=== PATIENT | female | born 1980 | race Caucasian/White ===

== ENCOUNTER 2019-04-28 12:21 | Outpatient (CLI) | payer OTHER ==
--- NOTE | 2019-04-28 13:43 | CT ---
CT abdomen and pelvis with and without IV contrast HISTORY: Hematuria. COMPARISON: 10/11/2014. FINDINGS: Each renal collecting system, ureter, and urinary bladder are decompressed. Within the righ t renal pelvis, there are 2 small calcifications measuring 0.5 cm and 0.3 cm greatest diameters. No stones are evident on the left. No other filling defects visible within the urinary system on the del ayed images. Tiny cyst associated with the cortex of each kidney. Liver is diffusely hypodense. Nonspecific, react rodney appearing lymph nodes are apparent throughout the mesentery and retroperitoneum. The largest is at the presacral level, measuring 0.9 cm greatest diameter. No evidence of bowel obstruction. IMPRESSION: Nonobstructing right renal calculi. Hepatic steatosis.
[2019-04-28] MEDS ORDERED: ISOVUE-370 76%-LOCM 1 ML ONE (13:44)
== END 2019-04-28 12:22 | disposition home or self-care (01) ==
LOC: BICCT 12:21
PROVIDERS: ATTEND Urology
DX: N20.0 Calculus of kidney (principal); R31.0 Gross hematuria; K76.0 Fatty (change of) liver, not elsewhere classified
CPT/HCPCS: 74178; Q9966

== ENCOUNTER 2019-05-28 05:53 | Day surgery (SDC) | payer BC ==
[2019-05-16 08:48] VITALS: BMI 36.4
[2019-05-28] MEDS ORDERED: Levofloxacin 500 mg/D5W 100 ml Premix Bag ONE (06:58)
[2019-05-28] MEDS ORDERED: Midazolam HCl 2 mg/ml Syrup 5 ml UD Cup ONE (07:13)
[2019-05-28] MEDS ORDERED: Iothalamate Meglumine 60% 50 ML VIAL FS ONE (07:18)
[2019-05-28] MEDS ORDERED: Fentanyl 100 MCG/2 ML VIAL ONE (07:28)
[2019-05-28] MEDS ORDERED: Fluconazole In NaCl,Iso-Osm 200 MG in Premix Bag 1 BAG IVPB SCH (07:30)
[2019-05-28] MEDS ORDERED: SUGAMMADEX SODIUM 500 MG/5 ML VIAL ONE (08:12)
--- NOTE | 2019-05-28 08:14 | RAD ---
SUPINE ABDOMEN: HISTORY: Preop. COMPARISON: Abdominal film from 01/09/2013. CT abdomen from 04/28/2019. FINDINGS: Calcification overlying the right renal outline is seen, corresponding to the calcifications seen in the collecting structures of the right kidney on the 04/28/2019 CT. No other calcification identifie d. The bowel gas pattern is unremarkable. POS: [facility]
--- NOTE | 2019-05-28 08:29 | RAD ---
EXAM: XR IVP Retrograde PROVIDED CLINICAL HISTORY: Gross hematuria COMPARISON: Abdominal radiograph on 05/28/2019. 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 Subsequent imaging demonstrates right retrograde urogram followed by placement of a guidewire and balloon with the balloon overlying the mid right ureter. The final im age demonstrates a double pigtail ureteral stent in place. Correlation with intraoperative findings is recommended.
[2019-05-28] MEDS ORDERED: Sodium Chloride For Inhalation 0.9% 3 ML NEB ONE (08:30)
[2019-05-28] MEDS ORDERED: Oxybutynin 5 MG TAB ONE (08:57)
[2019-05-28] MEDS ORDERED: Phenazopyridine HCl 97.5 MG TABLET ONE (08:57)
--- NOTE | 2019-05-28 09:06 | OP ---
DATE OF PROCEDURE: 05/28/2019 PREOPERATIVE DIAGNOSES: A 38-year-old female with history of morbid obesity, with right renal lithiasis measuring 10 mm x 5 mm x 6 mm, stone to skin distance, 6 to 17 cm due to morbid obesity. Previous stone analysis consistent with calcium phosphate 85%, monohydrate 50% moiety. POSTOPERATIVE DIAGNOSES: A 38-year-old female with history of morbid obesity, with right renal lithiasis measuring 10 mm x 5 mm x 6 mm, stone to skin distance, 6 to 17 cm due to morbid obesity. Previous stone analysis consistent with calcium phosphate 85%, monohydrate 50% moiety. PROCEDURES PERFORMED: Cystoscopy, right retrograde pyelogram, 6 x 22 double-J ureteral stent placement, balloon dilatation of the ureter, diagnostic ureteroscopy. ANESTHESIA: General. COMPLICATIONS: None apparent. DISPOSITION: To recovery room in stable condition. INDICATIONS FOR PROCEDURE AND HISTORY: Ms. Can is a pleasant 38-year-old female with history of recurrent kidney stone, prior stone moiety demonstrating dense calcium phosphate, calcium monohydrate moiety. She presented with a followup CT demonstrating right renal calculi measuring 10 mm in largest dimension with stone to skin distance about 16-17 cm. We discussed in detail regarding treatment options including observation, ESWL, ureteroscopy, laser lithotripsy. Given her stone nidus, density, and her morbid obesity, she desired more efficacious treatment, i.e., ureteroscopy, laser lithotripsy. She declined ESWL. Risks and complications including, but not limited to bleeding, pain, infection, ureteral, bladder, kidney injury, stricture disease, possible secondary procedure, if unable to access the upper collecting system was reviewed with her in detail and she desired to proceed. DESCRIPTION OF PROCEDURE: After an informed consent was signed, the patient was taken to the operating room, placed in a dorsal lithotomy position with the genital area prepped and draped in the usual surgical sterile fashion. A 21-Ku[place]i cystoscope was utilized for cystoscopy, which demonstrated normal bladder mucosa. The UOs were identified in normal anatomical location. She does have a mild cystocele grade 2. We intubated the right UO performing a retrograde pyelogram, which demonstrated no evidence of filling defect or hydronephrosis. The stone was seen likely in the right lower pole, it appeared to have moved to the lower pole anterior collecting system. A 0.35 Sensor wire was placed into the right upper pole without difficulty. Using a [employer] 4-cm 12-[place]i balloon dilator, we dilated the intramural ureter and the distal ureter in 2 segments under direct fluoroscopy evaluation. This was performed uneventfully. Subsequently, we passed a 10-[place]i dual-lumen access sheath to the level of the proximal ureter with ease and a second safety wire 0.35 Super Stiff was placed into the right upper pole. We gently attempted to pass an 11/13-[place]i 20 cm navigator; however, would not pass beyond the level of the intramural distal ureter to the level of the balloon dilatation. We did not forcibly engage. We removed the navigator and attempted to pass the flexible ureteroscope under guidewire assist. I was able to make my way into the level of the intramural ureter. There was a little hang up just proximal to this; however, under direct visualization, the scope was maneuvered with wire in situ and passed this beyond. The scope was gently passed to the level of the proximal ureter; however, at the level of the UPJ, there was a hang up and would not pass. Therefore, I did not forcibly engage. A decision was made to leave the stent in situ to allow passive dilatation so that we may access the renal pelvis collecting system at a later date as I did not want forcibly engage the ureteroscope. At this time, a 6 x 22 double-J ureteral stent was passed without difficulty. Proximal coil was seen in the renal pelvis with adequate redundancy in the bladder. She tolerated the procedure well. She was discharged with VESIcare 5 mg #30, one p.o. daily; Colace 100 mg one p.o. b.i.d.; tramadol 50 mg 1 to 2 p.o. q.4-6 hours p.r.n.; ciprofloxacin 500 mg for course of 5 days; Azo p.r.n. She will return to clinic next preop for a staged ureteroscopy and laser lithotripsy. I will tentatively attempt to book her June 11, so that she may have a stent in situ for palate dilatation to access the upper collecting system. Job ID: [id number] [facility]
== END 2019-05-28 10:54 | disposition home or self-care (01) ==
LOC: SDC 05:53
PROVIDERS: ATTEND Urology
PROC: 0TJ98ZZ Inspection of Ureter, Via Natural or Artificial Opening Endoscopic (ICD-10-PCS; principal; 2019-05-28)
PROC: 0T768DZ Dilation of Right Ureter with Intraluminal Device, Via Natural or Artificial Opening Endoscopic (ICD-10-PCS; principal; 2019-05-28)
DX: N20.0 Calculus of kidney (principal); N81.10 Cystocele, unspecified; E66.01 Morbid (severe) obesity due to excess calories; J45.909 Unspecified asthma, uncomplicated; I10 Essential (primary) hypertension; E78.00 Pure hypercholesterolemia, unspecified; G43.909 Migraine, unspecified, not intractable, without status migrainosus; E78.5 Hyperlipidemia, unspecified; E11.65 Type 2 diabetes mellitus with hyperglycemia; K21.9 Gastro-esophageal reflux disease without esophagitis; N39.3 Stress incontinence (female) (male); Z68.36 Body mass index [BMI] 36.0-36.9, adult; Z87.891 Personal history of nicotine dependence; Z87.442 Personal history of urinary calculi; Z88.1 Allergy status to other antibiotic agents; Z88.8 Allergy status to other drugs, medicaments and biological substances; Z79.84 Long term (current) use of oral hypoglycemic drugs; Z79.899 Other long term (current) drug therapy
CPT/HCPCS: 74018; 74420; C1758; C1769; J1450; J1956; J3010; J7620

== ENCOUNTER 2019-06-11 06:50 | Day surgery (SDC) | payer BC ==
[2019-06-05 10:56] VITALS: BMI 35.5
[2019-06-11] MEDS ORDERED: Levofloxacin 500 mg/D5W 100 ml Premix Bag ONE (07:49)
[2019-06-11] MEDS ORDERED: cefTRIAXone\\ROCEPHIN 1 GM VIAL ONE (07:49)
[2019-06-11] MEDS ORDERED: Sodium Chloride 0.9% 100 ML ONE (07:49)
[2019-06-11] MEDS ORDERED: Iothalamate Meglumine 60% 50 ML VIAL FS ONE (07:57)
--- NOTE | 2019-06-11 08:22 | RAD ---
FRONTAL VIEW ABDOMEN KUB: COMPARISON: 05/28/2019. INDICATION: History of urolithiasis, stent placement. FINDINGS: There is a double-J right ureteral stent with proximal coil overlying the expected region of the righ t renal pelvis and distal coiled overlying the urinary bladder. There is an adjacent calcific densit y just inferior to the proximal ureteral coil overlying the right renal shadow, grossly stable. IMPRESSION: Interval deployment of right ureteral stent. Calcification overlying the right renal shadow persists . POS: [facility]
[2019-06-11] MEDS ORDERED: Fentanyl 100 MCG/2 ML VIAL ONE ×2 (09:16→11:54)
[2019-06-11] MEDS ORDERED: Midazolam HCl 2 mg/2 ml Vial ONE (09:16)
[2019-06-11] MEDS ORDERED: Morphine 2 MG/ML SYRINGE ONE (13:08)
--- NOTE | 2019-06-11 13:13 | RAD ---
RETROGRADE PYELOGRAM: HISTORY: Stent placement. FINDINGS: Preliminary film shows lower pole right renal calculus. Subsequent 4 images show placement of a righ t ureteral stent which is in good position. IMPRESSION: Placement of right ureteral stent. POS: [facility]
[2019-06-11] MEDS ORDERED: HYDROcodone/Acetaminophen 5/325 mg Tablet ONE (14:50)
--- NOTE | 2019-06-11 16:34 | OP ---
DATE OF PROCEDURE: 06/11/2019 PREOPERATIVE DIAGNOSIS: A 38-year-old female with history of recurrent kidney stone: Right renal lithiasis x2, total dimensions measuring about 10 mm. POSTOPERATIVE DIAGNOSIS: A 38-year-old female with history of recurrent kidney stone: Right renal lithiasis x2, total dimensions measuring about 10 mm. PROCEDURES PERFORMED: 1. Cystoscopy. 2. Right retrograde pyelogram. 3. 6 x 22 double-J ureteral stent exchange. 4. Ureteroscopy. 5. Pyeloscopy. 6. Laser lithotripsy of renal calculi. 7. Basket extraction of stone fragments.. ANESTHESIA: General. COMPLICATIONS: None apparent. DISPOSITION: To recovery room in stable condition. INDICATIONS FOR PROCEDURE AND HISTORY: Ms. Can is a 38-year-old female with morbid obesity and diabetes, who has recurrent kidney stone. Staging CT demonstrated a large renal stone burden as above and she desired to proceed with elective treatment. She underwent cysto and stent placement; however, I was unable to access the upper collecting system despite ureteral dilatation of the distal ureter. Therefore, stent was left in situ. She presents today for ureteroscopy and laser lithotripsy. Risks and complications of procedure were reviewed with her in detail including, but not limited to, bleeding, pain, infection, injury to adjacent organs, urosepsis, ureteral, renal, bladder, kidney injury, possible secondary procedure and she desired to proceed. DESCRIPTION OF PROCEDURE: After an informed consent was signed, the patient was taken to the operating room and placed in a dorsal lithotomy position with the genital area prepped and draped in the usual surgical sterile fashion. Bilateral KARTHIK hose and SCDs were provided. A 21-Montenegrin cystoscope was utilized for cystoscopy, which demonstrated normal bladder mucosa. The previously placed right ureteral stent was removed to the level of the meatus and a 0.035 Sensor wire was passed to the level of the right renal collecting system. The stent was completely removed, and using a dual-lumen access sheath, we passed this to the level of the proximal ureter. Retrograde pyelogram opacified the collecting system, demonstrating an acute infundibular angle of the lower pole stone. Total dimension measures approximately 1 cm on KUB. At this time, a 0.035 Super Stiff wire was passed into the right upper pole via the dual-lumen. Subsequently, the dual- lumen was removed and an 11/13-Montenegrin x 28 cm navigator was passed through the Super Stiff wire. We passed a flexible ureteroscope to the level of the proximal ureter. This was passed to the level of the renal pelvis under guidance of the wire. The wire was then subsequently removed and we surveyed the collecting system, demonstrating a right renal pelvic stone and a lower pole stone. There were 2 stone moieties, and 1 was in the renal pelvis and we moved this to the upper pole. We laser lithotripsied using 200 micron ball-tip fiber as a dust setting, and we subsequently moved the right lower pole stone into the upper pole and laser lithotripsied the stone as well. Both stones had limbs consistent with Arnel stone. Laser lithotripsy of the stone was performed and they were very dense and hard in nature. After successful fragmentation, we retrieved those that were amendable to be basket extracted. What remains are punctate stone debris that is not of significant concern and she will most likely pass them. We surveyed the ureter, which demonstrated no evidence of ureteral mucosa trauma or persistent stone nidus of concern. The navigator was then successfully removed and we placed a 6 x 22 double-J ureteral stent uneventfully. She tolerated the procedure well and transported to the recovery room in stable condition. She is discharged with azo p.r.n.; VESIcare 5 mg, #20; ciprofloxacin for 10 days; tramadol #30, 50 mg; Colace p.r.n., #30. She is to obtain a KUB 1 day prior to her appointment with [facility] on , 06/19. KUB to be obtained on at 9 a.m. If no obvious stone debris of concern, we will remove stent under local on . Job ID: [id number] [facility]
[2019-06-11] MEDS ORDERED: Rocuronium Bromide 10 MG/ML (10ML VIAL) ONE (16:44)
[2019-06-11] MEDS ORDERED: Glycopyrrolate 0.2 MG/ML 5 ML SYRINGE ONE (16:44)
[2019-06-11] MEDS ORDERED: PROPOFOL 200 MG/20 ML VIAL ONE (16:44)
[2019-06-11] MEDS ORDERED: Lidocaine 1% PF 5 ML VIAL ONE (16:44)
== END 2019-06-11 15:12 | disposition home or self-care (01) ==
LOC: SDC 06:50
PROVIDERS: ATTEND Urology
PROC: 0TF38ZZ Fragmentation in Right Kidney Pelvis, Via Natural or Artificial Opening Endoscopic (ICD-10-PCS; principal; 2019-06-11)
PROC: 0T768DZ Dilation of Right Ureter with Intraluminal Device, Via Natural or Artificial Opening Endoscopic (ICD-10-PCS; principal; 2019-06-11)
DX: N20.0 Calculus of kidney (principal); G43.909 Migraine, unspecified, not intractable, without status migrainosus; J45.909 Unspecified asthma, uncomplicated; G93.2 Benign intracranial hypertension; E66.01 Morbid (severe) obesity due to excess calories; Z68.35 Body mass index [BMI] 35.0-35.9, adult; Z87.891 Personal history of nicotine dependence; Z79.84 Long term (current) use of oral hypoglycemic drugs; Z79.899 Other long term (current) drug therapy; Z88.1 Allergy status to other antibiotic agents; Z88.8 Allergy status to other drugs, medicaments and biological substances
CPT/HCPCS: 74018; 74420; 82365; 88300; J0696; J1956; J2001; J2250; J2270; J2704; J3010; J3490

== ENCOUNTER 2019-06-18 08:38 | Outpatient (CLI) | payer BC ==
--- NOTE | 2019-06-18 09:05 | RAD ---
EXAM: Single view of the abdomen HISTORY: Calculus of the kidney COMPARISON: 06/11/2019 FINDINGS: Single view of the abdomen shows a nonspecific, nonobstructive bowel gas pattern. A right-s ided ureteral stent appears in good position. No suspicious calcifications are seen. The bones are unremarkable. IMPRESSION: Nonvisualization of the previously seen right renal calcifications
== END 2019-06-18 08:39 | disposition home or self-care (01) ==
LOC: BICRAD 08:38
PROVIDERS: ATTEND Urology
DX: N20.0 Calculus of kidney (principal)
CPT/HCPCS: 74018

== ENCOUNTER 2019-06-19 17:15 | Emergency (ER) | payer BC ==
[2019-06-19] MEDS ORDERED: cefTRIAXone\\ROCEPHIN 2 GM VIAL ONE (18:10)
[2019-06-19 18:21] LABS: Bilirubin Negative (Negative); Urobilinogen 0.2 mg/dL (Less than 2)
[2019-06-19 18:26] LABS: Clarity Hazy (Clear)
[2019-06-19 18:27] LABS: Blood, Urine Moderate (Negative); Glucose, Urine (Dipstick) >=1000 mg/dL (Negative); Leukocyte Unable to Interpret (Negative); Nitrite Unable to Interpret (Negative)
[2019-06-19 18:29] LABS: Protein, Urine (Dipstick) Trace mg/dL (Neg-Trace)
[2019-06-19 18:38] LABS: Squamous Epithelial 0-3 HPF (0-3); WBC/HPF 21-50 HPF (0-3); Yeast-Budding 2+ HPF (None Seen)
[2019-06-19 18:40] LABS: #Eosinphils 0.1 thou/uL (0.0-0.7); #Lymphocytes 2.5 thou/uL (1.20-3.40); #Neutrophils 5.4 thou/uL (1.40-6.50); %Basophils 0.4 % (0.0-1.0); %Eosinophils 1.4 % (0.0-10.0); %Lymphocytes 27.5 % (21.0-51.0); %Monocytes 10.9 % (0.0-10.0); %Neutrophils 59.7 % (42.0-75.0); Hemoglobin 13.7 g/dL (12.0-16.0); Mean Corpuscular HGB CONC 33.7 g/dL (32.0-36.0); Mean Corpuscular Hemoglobin 30.6 pg (27.0-31.0); Mean Corpuscular Volume 90.7 fL (78.0-98.0); Platelet Count 256 thou/uL (130-400); RBC Distribution Width 11.2 % (11.5-14.5); Red Blood Cell (RBC) Count 4.49 mill/uL (4.20-5.40)
[2019-06-19 18:42] LABS: Bacteria/HPF None Seen HPF (None Seen)
[2019-06-19 19:05] LABS: ALT (SGPT) 47 U/L (8-55); AST (SGOT) 28 U/L (5-34); Alkaline Phosphatase 111 U/L (40-150); Anion Gap 16 mmol/L (10-20); BUN (Urea Nitrogen) 9 mg/dL (7.0-18.7); Bilirubin, Total 0.4 mg/dL (0.2-1.2); Calc. Creatinine Clearance 0 mL/min (70-130); Calcium 9.8 mg/dL (7.8-10.44); Carbon Dioxide 25 mmol/L (22-29); Chloride 99 mmol/L (98-107); Estimated GFR-MDRD 83; Globulin 3.3 g/dL (2.4-3.5); Glucose 280 mg/dL (70-105); Potassium 3.6 mmol/L (3.5-5.1); Protein, Total 7.3 g/dL (6.0-8.3); Sodium 136 mmol/L (136-145)
[2019-06-19] MEDS ORDERED: Acetaminophen 500 MG TAB ONE (19:54)
--- NOTE | 2019-06-19 20:04 | CT ---
CT abdomen and pelvis noncontrast HISTORY: Right flank pain. Fever. Ureteral stent. COMPARISON: 04/28/2019. FINDINGS: Double pigtail stent is in place in the right ureter. No hydronephrosis. Urinary collecting system, ureters, and urinary bladder are decompressed. A 5 mm oval calcification is present within a nondilated calyx at the inferior pole of the right kidney. There are at least 3 additional tiny dolly cifications in the right kidney. No calcifications on the left. Lack of contrast limits evaluation for other abnormalities. Liver is diffusely hypodense. IMPRESSION: Right ureteral stent in good CT position without evidence of obstruction or complication. Nonobstructing right renal calculi measuring up to 0.5 cm. Hepatic steatosis.
[2019-06-19] MEDS ORDERED: Fluconazole 100 MG TAB PO SCH (21:15)
== END 2019-06-19 21:41 | disposition home or self-care (01) ==
LOC: ERS 17:15
DX: N39.0 Urinary tract infection, site not specified (principal); E78.5 Hyperlipidemia, unspecified; E11.9 Type 2 diabetes mellitus without complications; I10 Essential (primary) hypertension; Z87.891 Personal history of nicotine dependence; Z79.84 Long term (current) use of oral hypoglycemic drugs; Z79.899 Other long term (current) drug therapy
CPT/HCPCS: 36415; 51701; 74176; 80053; 81001; 81015; 83605; 85025; 87040; 87086; 96361; 96365; A4353; J0696

== ENCOUNTER 2019-09-29 07:22 | Outpatient (CLI) | payer BC ==
--- NOTE | 2019-09-29 09:59 | ULT ---
RENAL ULTRASOUND: HISTORY: Renal calculi. COMPARISON: None. FINDINGS: Right kidney: There is an echogenic focus within the cortex, measuring 0.4 cm, likely representing ne phrocalcinosis. There is no hydronephrosis. No solid mass is noted in the right kidney. The right kid eliz measures 5.9 x 12.9 x 6.1 cm. Left kidney: Solitary echogenic focus in the left renal pelvis, measuring 0.6 cm. No evidence of hydr onephrosis. No evidence of a solid cortical mass. The left kidney measures 13.2 x 6.3 x 5.5 cm. Unremarkable urinary bladder. IMPRESSION: 1. No evidence of hydronephrosis. 2. Possible left sided nephrolithiasis without associated obstructive uropathy. 3. Right sided nephrocalcinosis. No evidence of obstructive uropathy. POS: [facility]
--- NOTE | 2019-09-29 10:35 | RAD ---
ABDOMEN ONE VIEW: HISTORY: Renal calculus. FINDINGS: No overt calculus. No bowel obstruction. IMPRESSION: No overt genitourinary calculus. POS: [facility]
== END 2019-09-29 07:23 | disposition home or self-care (01) ==
LOC: BICULT 07:22
PROVIDERS: ATTEND Urology
DX: N20.0 Calculus of kidney (principal)
CPT/HCPCS: 36415; 74018; 76770; 80048; 81001; 83970; 84550; 87086

== ENCOUNTER 2022-02-10 12:02 | Outpatient (CLI) | payer BC | END 2022-02-10 12:03 | disposition home or self-care (01) | LOC: BICMAMMO 12:02 | PROVIDERS: ATTEND Physician Assistant | DX: Z12.31 Encounter for screening mammogram for malignant neoplasm of breast (principal); Z80.3 Family history of malignant neoplasm of breast; Z98.890 Other specified postprocedural states | CPT/HCPCS: 77063; 77067 ==

== ENCOUNTER 2023-05-24 13:56 | Outpatient (CLI) | payer BC | END 2023-05-24 13:57 | disposition home or self-care (01) | LOC: BICMAMMO 13:56 | PROVIDERS: ATTEND Nurse Practitioner Family | DX: Z12.31 Encounter for screening mammogram for malignant neoplasm of breast (principal); N63.13 Unspecified lump in the right breast, lower outer quadrant; Z80.3 Family history of malignant neoplasm of breast; Z91.89 Other specified personal risk factors, not elsewhere classified; Z98.82 Breast implant status; Z98.890 Other specified postprocedural states | CPT/HCPCS: 77063; 77067 ==

== ENCOUNTER 2023-05-28 13:51 | Outpatient (CLI) | payer BC | END 2023-05-28 13:52 | disposition home or self-care (01) | LOC: BICULT 13:51 | PROVIDERS: ATTEND Nurse Practitioner Family | DX: N63.13 Unspecified lump in the right breast, lower outer quadrant (principal) ==

== ENCOUNTER 2023-11-29 07:48 | Outpatient (CLI) | payer BC | END 2023-11-29 07:49 | disposition home or self-care (01) | LOC: BICMAMMO 07:48 | PROVIDERS: ATTEND Nurse Practitioner Family | DX: R92.8 Other abnormal and inconclusive findings on diagnostic imaging of breast (principal); N63.10 Unspecified lump in the right breast, unspecified quadrant | CPT/HCPCS: G0279 ==

== ENCOUNTER 2025-06-17 12:26 | Outpatient (CLI) | payer BC | END 2025-06-17 12:27 | disposition home or self-care (01) | LOC: BICMAMMO 12:26 | PROVIDERS: ATTEND Nurse Practitioner Family | DX: Z12.31 Encounter for screening mammogram for malignant neoplasm of breast (principal); Z80.3 Family history of malignant neoplasm of breast; Z98.890 Other specified postprocedural states; Z91.89 Other specified personal risk factors, not elsewhere classified | CPT/HCPCS: 77063; 77067 ==

== ENCOUNTER 2025-08-13 11:48 | Outpatient (CLI) | payer BC | END 2025-08-13 11:49 | disposition home or self-care (01) | LOC: BICRAD 11:48 | PROVIDERS: ATTEND Nurse Practitioner Family | DX: R06.2 Wheezing (principal) | CPT/HCPCS: 71046 ==

== ENCOUNTER 2025-09-02 09:22 | Outpatient (CLI) | payer BC ==
[2025-09-02] MEDS ORDERED: Iopamidol 370 76% 100 ML VIAL ONE (09:36)
== END 2025-09-02 09:23 | disposition home or self-care (01) ==
LOC: CT 09:22
PROVIDERS: ATTEND Nurse Practitioner Family
DX: R06.02 Shortness of breath (principal)
CPT/HCPCS: 71260; Q9967